=== PATIENT | male | born 1955 | race Caucasian/White ===

== ENCOUNTER → 2017-07-17 | Outpatient (CLI) | payer OTHER, MEDICAID ==
[~2017-07-17] MED LIST: CARDIZEM CD120 MG PO; CIPRO500 MG PO; HYDROCODONE-AP1 EAC6 PO; KLOR-CON 1010 MEQ PO; LASIX 20 MG TAB20 MG PO; NORCO 5-325 TA1 EACH PO; OMEPRAZOLE40 MG PO; TOPROL XL100 MG PO; VESICARE 5 MG TA5 MG PO; ZANTAC 150MG T150 MG PO
== END ==
LOC: M.WC 08:30
DX: T81.89XA Other complications of procedures, not elsewhere classified, initial encounter (principal); K21.9 Gastro-esophageal reflux disease without esophagitis; I50.9 Heart failure, unspecified; F17.200 Nicotine dependence, unspecified, uncomplicated; Y83.8 Other surgical procedures as the cause of abnormal reaction of the patient, or of later complication, without mention of misadventure at the time of the procedure

== ENCOUNTER → 2017-07-22 | Outpatient (CLI) | payer OTHER, MEDICAID | LOC: M.WC 04:13 | DX: T81.89XD Other complications of procedures, not elsewhere classified, subsequent encounter (principal); I87.312 Chronic venous hypertension (idiopathic) with ulcer of left lower extremity; L97.821 Non-pressure chronic ulcer of other part of left lower leg limited to breakdown of skin; M86.472 Chronic osteomyelitis with draining sinus, left ankle and foot; I89.0 Lymphedema, not elsewhere classified; I11.0 Hypertensive heart disease with heart failure; I50.22 Chronic systolic (congestive) heart failure; K21.9 Gastro-esophageal reflux disease without esophagitis; F17.200 Nicotine dependence, unspecified, uncomplicated; Z68.43 Body mass index [BMI] 50.0-59.9, adult; Y83.8 Other surgical procedures as the cause of abnormal reaction of the patient, or of later complication, without mention of misadventure at the time of the procedure ==

== ENCOUNTER → 2017-07-29 | Outpatient (CLI) | payer OTHER, MEDICAID | LOC: M.WC 03:35 | DX: T81.89XD Other complications of procedures, not elsewhere classified, subsequent encounter (principal); I87.312 Chronic venous hypertension (idiopathic) with ulcer of left lower extremity; L97.821 Non-pressure chronic ulcer of other part of left lower leg limited to breakdown of skin; M86.471 Chronic osteomyelitis with draining sinus, right ankle and foot; I89.0 Lymphedema, not elsewhere classified; I11.0 Hypertensive heart disease with heart failure; I50.22 Chronic systolic (congestive) heart failure; K21.9 Gastro-esophageal reflux disease without esophagitis; F17.200 Nicotine dependence, unspecified, uncomplicated; Z68.43 Body mass index [BMI] 50.0-59.9, adult; Y83.8 Other surgical procedures as the cause of abnormal reaction of the patient, or of later complication, without mention of misadventure at the time of the procedure ==

== ENCOUNTER → 2017-08-05 | Outpatient (CLI) | payer OTHER, MEDICAID | LOC: M.WC 00:40 | DX: T81.89XD Other complications of procedures, not elsewhere classified, subsequent encounter (principal); E11.69 Type 2 diabetes mellitus with other specified complication; M86.471 Chronic osteomyelitis with draining sinus, right ankle and foot; I11.0 Hypertensive heart disease with heart failure; I50.22 Chronic systolic (congestive) heart failure; I89.0 Lymphedema, not elsewhere classified; K21.9 Gastro-esophageal reflux disease without esophagitis; F17.200 Nicotine dependence, unspecified, uncomplicated; Z68.43 Body mass index [BMI] 50.0-59.9, adult; Y83.8 Other surgical procedures as the cause of abnormal reaction of the patient, or of later complication, without mention of misadventure at the time of the procedure ==

== ENCOUNTER → 2017-08-12 | Outpatient (CLI) | payer OTHER, MEDICAID | LOC: M.WC 04:08 | DX: T81.89XD Other complications of procedures, not elsewhere classified, subsequent encounter (principal); M86.471 Chronic osteomyelitis with draining sinus, right ankle and foot; I89.0 Lymphedema, not elsewhere classified; I11.0 Hypertensive heart disease with heart failure; I50.22 Chronic systolic (congestive) heart failure; K21.9 Gastro-esophageal reflux disease without esophagitis; F17.210 Nicotine dependence, cigarettes, uncomplicated; Y83.8 Other surgical procedures as the cause of abnormal reaction of the patient, or of later complication, without mention of misadventure at the time of the procedure ==

== ENCOUNTER → 2017-08-19 | Outpatient (CLI) | payer OTHER, MEDICAID ==
[2017-08-19 13:23] LABS: ABSOLUTE BASOPHILS 0.1 thou/uL (0.0-0.2); ABSOLUTE EOSINOPHILS 0.2 thou/uL (0.0-0.7); ABSOLUTE LYMPHOCYTES 1.9 thou/uL (0.8-5.3); ABSOLUTE MONOCYTES 0.6 thou/uL (0.0-1.2); ABSOLUTE NEUTROPHILS 3.8 thou/uL (1.6-8.1); BASOPHILS 1.1 %; HEMATOCRIT 44.8 % (42.0-52.0); HEMOGLOBIN 14.9 gm/dL (14.0-18.0); LYMPHOCYTES 29.5 %; MCH 29.1 pg (26.0-34.0); MCHC 33.2 g/dL (28.0-37.0); MCV 87.6 fL (80.0-100.0); MONOCYTES 9.1 %; MPV 7.2 fl. (7.2-11.1); NUCLEATED RBCS 0 /100WBC; PLATELET COUNT* 279 thou/uL (150-400); POLYS 57.3 %; RBC 5.11 mil/uL (4.50-6.00); RDW-CV 14.1 % (10.5-14.5); WBC 6.6 thou/uL (4.0-11.0)
[2017-08-19 13:29] LABS: CALCIUM 8.7 mg/dL (8.5-10.1); CREATININE 0.8 mg/dL (0.6-1.3)
[2017-08-19 13:36] LABS: ALBUMIN 3.4 g/dL (3.4-5.0); TOTAL BILIRUBIN 0.4 mg/dL (<0.1-1.0); TOTAL PROTEIN 7.2 g/dL (6.4-8.2)
[2017-08-19 14:28] LABS: ESR (SEDRATE) 3 mm/hr (0-20)
== END ==
LOC: M.WC 05:08
PROVIDERS: Family Medicine
DX: T81.31XD Disruption of external operation (surgical) wound, not elsewhere classified, subsequent encounter (principal); I11.0 Hypertensive heart disease with heart failure; I50.22 Chronic systolic (congestive) heart failure; M86.471 Chronic osteomyelitis with draining sinus, right ankle and foot; K21.9 Gastro-esophageal reflux disease without esophagitis; F17.200 Nicotine dependence, unspecified, uncomplicated; Z68.43 Body mass index [BMI] 50.0-59.9, adult; Y83.8 Other surgical procedures as the cause of abnormal reaction of the patient, or of later complication, without mention of misadventure at the time of the procedure

== ENCOUNTER 2017-08-30 15:20 | Inpatient (IN) | payer OTHER, MEDICAID ==
[~2017-08-30] VITALS: Ht 172.7 cm; Wt 117.0 kg
[2017-08-30 15:21] VITALS: BP 85/49
[2017-08-30] MEDS ORDERED: LASIX 20 MG TAB20 MG PO (15:32)
[2017-08-30] MEDS ORDERED: VESICARE 5 MG TA5 MG PO (15:32)
[2017-08-30] MEDS ORDERED: HYDROCODONE-AP1 EAC6 PO (15:32)
[2017-08-30] MEDS ORDERED: KLOR-CON 1010 MEQ PO (15:32)
[2017-08-30] MEDS ORDERED: TOPROL XL100 MG PO (15:32)
[2017-08-30] MEDS ORDERED: ZANTAC 150MG T150 MG PO (15:33)
[2017-08-30] MEDS ORDERED: OMEPRAZOLE40 MG PO (15:33)
[2017-08-30 16:34] LABS: HEMATOCRIT 42.8 % (42.0-52.0); HEMOGLOBIN 14.3 gm/dL (14.0-18.0); MCH 29.1 pg (26.0-34.0); MCHC 33.3 g/dL (28.0-37.0); MCV 87.4 fL (80.0-100.0); MPV 7.4 fl. (7.2-11.1); NUCLEATED RBCS 0 /100WBC; PLATELET COUNT* 214 thou/uL (150-400); RDW-CV 14.2 % (10.5-14.5); WBC 18.3 thou/uL (4.0-11.0)
[2017-08-30 16:47] LABS: CALCIUM 8.7 mg/dL (8.5-10.1); POTASSIUM 3.9 mmol/L (3.5-5.1)
[2017-08-30 16:52] LABS: ALBUMIN 3.1 g/dL (3.4-5.0); TOTAL BILIRUBIN 0.8 mg/dL (<0.1-1.0)
[2017-08-30 17:02] LABS: ABSOLUTE LYMPHOCYTES 0.9 thou/uL (0.8-5.3); ABSOLUTE MONOCYTES 0.7 thou/uL (0.0-1.2); ABSOLUTE NEUTROPHILS 16.7 thou/uL (1.6-8.1)
[2017-08-30 17:03] LABS: PLATELET ESTIMATE ADEQUATE
[2017-08-30 17:10] LABS: URINE BILIRUBIN NEGATIVE (Negative); URINE BLOOD TRACE (Negative); URINE CLARITY CLEAR; URINE COLOR YELLOW; URINE GLUCOSE-RANDOM NEGATIVE (Negative); URINE KETONES NEGATIVE (Negative); URINE LEUKOCYTES-REFLEX NEGATIVE (Negative); URINE NITRITE-REFLEX NEGATIVE (Negative); URINE PROTEIN 1+ (Negative); URINE SPECIFIC GRAVITY >= 1.030 (1.005-1.030); URINE UROBILINOGEN 0.2 E.U./dl (0.2-1.0)
[2017-08-30 18:41] LABS: APTT 33.4 Seconds (25.0-31.3); INR 1.2; PROTIME 11.6 Seconds (9.20-11.50)
[2017-08-30 20:20] VITALS: BP 117/52
[2017-08-30 20:24] VITALS: BP 116/60
[2017-08-30 21:00] VITALS: BP 107/53
[2017-08-30 22:00] VITALS: BP 116/56
[2017-08-30 23:00] VITALS: BP 115/61
[2017-08-31] VITALS (20 sets, daily range): BP systolic 92–149; BP diastolic 30–75
--- NOTE | 2017-08-31 04:43 | NUR ---
ADMITTED TO ICU BED 1 AT 2014, SEE ASSESSMENT. SPRING SALVAGE WORKER TRACING BIGEMINAL PVC'S, DR FELIX NOTIFIED, CARDIOLOGY CONSULT ORDERED. DR FELIX ALSO INSTRUCTED WE NOT RESTART PTS HOME METOPROLOL THIS MED CAN CAUSE BIGEMINY. PT HAS R ANKLE WOUND WITH WOUND VAC PLACED BY [facility], HOWEVER BATTERY HAD AND PT DOES NOT HAVE CASING GRADER. PER DR FELIX WET-TO-DRY DRESSING WAS PLACED UNTIL PT IS SEEN BY WOUND RN, PHOTOS TAKEN. PT DROWSY AND LETHARGIC, AROUSABLE TO VERBAL AND PHYSICAL STIMULI AND ANSWERS ORIENTATION QUESTIONS CORRECTLY BUT QUICKLY FALLS BACK ASLEEP, SOMETIMES MID-SENTENCE. CALL LIGHT WITHIN REACH.
--- NOTE | 2017-08-31 11:10 | NUR ---
ADMITTED EARLIER THIS MORNING WITH WOUND RLE, PT LETHARGIC, NO CONTACT INFORMATION PROVIDED ON ADMISSION. CALLED WOUND CENTER, THEY HAVE PT'S SISTER XIMENA DOWNS LEATHER TOGGLER [phone].
--- NOTE | 2017-08-31 15:27 | NUR ---
WOUND NURSE: PATIENT SEEN FOR ASSESSMENT OF FULL THICKNESS WOUND ON THE ANTERIOR ASPECT OF THE RIGHT ANKLE. WOUND PRESENTS WITH PINK TO RED GRANULATION TISSUE IN THE BED ACCOMPANIED WITH APPROX 25% YELLOW SLOUGH, SOME FIRMLY ADHERED TO THE WOUND BASE. PRESENTS WITH SEROUS AND SEROUSANGUINOUS DRAINAGE. THERE IS 3+ NONPITTING EDEMA PRESENT. THE AFFECTED AREAS IS PAINFUL, EDEMATOUS, AND WARM TO TOUCH. THERE IS REDNESS WHICH EXTENDS TO THE KNEE. CLEANSED WITH WOUND CLEANSER, THEN APPLIED AQUACEL AG UNDER ABD, THEN WRAPPED WTH KERLEX ROLL GAUZE UNDER CHANTEL WRAP. HOME WOUND VAC PLACED ON HOLD. ATTEMPTED TO CONTACT [facility] BUT THEY FAILED TO ANSWER AFTER 10 MINUTS. STAFF NURSE LV TO REMAIN ON HOLD WITH [facility], THEN PROVIDE THEM THE NECESSARY INFORMATION.
--- NOTE | 2017-08-31 18:17 | 2DMMODE ---
[place] [address] 2 D/M-MODE ECHOCARDIOGRAM Name: CASSIDY MARCH Room: [address] IN [facility]#: [id number] Admission: 08/30/17 Attend Phys: Alli Talamantes, Discharge: Date of : 59 Date of Service: 08/31/17 1817 Report #: [id number] THIS REPORT FOR: //name// APPROVED REPORT Study performed: 08/31/2017 09:18:02 EXAM: Comprehensive 2D, Doppler, and color-flow Echocardiogram Patient Location: In-Patient Room #: [facility] Status: routine BSA: 2.32 HR: 66 bpm BP: 92/41 mmHg Rhythm: NSR Other Information Study Quality: Good Indications Bigeminy 2D Dimensions LVEF(%): 78.87 (>50%) IVSd: 11.60 (7-11mm) LVOT Diam: 20.75 (18-24mm) LVDd: 47.53 mm PWd: 10.64 (7-11mm) Ascending Ao: 36.96 (22-36mm) LVDs: 24.94 (25-40mm) Aortic Root: 39.88 mm Gómez's LVEF: 78.87 % Volumes Left Atrial Volume (Systole) LA ESV Index: 24.10 mL/m2 Aortic Valve AoV Peak Sarwat.: 1.45 m/s AO Peak Gr.: 8.46 mmHg LVOT Max P.29 mmHg AO Mean Gr.: 5.10 mmHg LVOT Mean P.01 mmHg LVOT Max V: 1.44 m/s AO V2 VTI: 27.24 cm LVOT Mean V: 0.91 m/s ABHIJIT (VTI): 3.52 cm2 LVOT V1 VTI: 28.35 cm Mitral Valve E/A Ratio: 1.70 [place] [address] 2 D/M-MODE ECHOCARDIOGRAM Name: CASSIDY MARCH Room: [address] IN [facility]#: [id number] Admission: 08/30/17 Attend Phys: Alli Talamantes, Discharge: Date of : 59 Date of Service: 08/31/17 1817 Report #: [id number] MV Decel. Time: 163.17 ms MV E Max Sarwat.: 1.09 m/s MV PHT: 47.32 ms MVA (PHT): 4.65 cm2 TDI E/Lateral E': 6.06 E/Medial E': 7.27 Medial E' Sarwat.: 0.15 m/s Lateral E' Sarwat.: 0.18 m/s Pulmonary Valve PV Peak Sarwat.: 1.21 m/s PV Peak Gr.: 5.89 mmHg Tricuspid Valve RAP Estimate: 5.00 mmHg TR Peak Gr.: 30.25 mmHg RVSP: 35.25 mmHg PA Pressure: 35.25 mmHg Left Ventricle The left ventricle is normal size. There is normal LV segmental wall motion. There is normal left ventricular wall thickness. Left ventricular systolic function is normal. The left ventricular ejection fraction is within the normal range. LVEF is 60-65%. The left ventricular diastolic function is normal. Right Ventricle The right ventricle is normal size. The right ventricular systolic function is normal. Atria The left atrium size is normal. The right atrium size is normal. Aortic Valve The aortic valve is normal in structure. No aortic regurgitation is present. There is no aortic valvular stenosis. Mitral Valve The mitral valve is normal in structure. Trace mitral regurgitation. No evidence of mitral valve stenosis. Tricuspid Valve The tricuspid valve is normal in structure. Trace tricuspid regurgitation. Mild pulmonary [place] [address] 2 D/M-MODE ECHOCARDIOGRAM Name: CASSIDY MARCH Room: [address]#: [id number] Admission: 08/30/17 Attend Phys: Alli Talamantes, Discharge: Date of : 59 Date of Service: 08/31/17 1817 Report #: [id number] The pulmonary valve is normal in structure. Trace pulmonic regurgitation. Great Vessels The aortic root is normal in size. IVC is normal in size and collapses with >50% inspiration Pericardium There is no pericardial effusion. <Conclusion> The left ventricle is normal size. There is normal left ventricular wall thickness. Left ventricular systolic function is normal. The left ventricular ejection fraction is within the normal range. LVEF is 60-65%. The left ventricular diastolic function is normal. The right ventricle is normal size. The left atrium size is normal. The aortic valve is normal in structure. The mitral valve is normal in structure. The tricuspid valve is normal in structure. IVC is normal in size and collapses with >50% inspiration There is no pericardial effusion. There is normal LV segmental wall motion. <ELECTRONICALLY SIGNED> By: Israel Ross MD, FACC 08/31/171816 16 16 Israel Ross MD, FACC /INF
--- NOTE | 2017-08-31 18:43 | NUR ---
PT LETHARGIC AND DROWSY THROUGHOUT THE DAY. PT AWAKENED BY VERBAL STIMULI BUT OTHERWISE SLEPT THROUGH THE DAY. PAIN RATED 10/10 IN HIS RIGHT FOOT WHEN HE IS AWAKE. WOUND CARE SAW PATIENT, PLEASE SEE DRESSING CHANGE ORDERS. ASSESSMENT CHARTED AND VSS THROUGHOUT THE DAY. PT ABLE TO TURN SELF IN BED SIDE TO SIDE.
[2017-09-01] VITALS (9 sets, daily range): BP systolic 103–130; BP diastolic 41–68
--- NOTE | 2017-09-01 05:52 | NUR ---
NOT PROGRESSING TOWARD GOALS. AROUSABLE TO VERBAL AND PHYSICAL STIMULI, MORE VERBAL AND INTERACTIVE WHEN AWAKE, BU STILL FALL BACK TO SLEEP QUICKLY. PT HAS SLEPT MAJORITY OF THIS SHIFT. 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 AFEBRILE. IVF INFUSING ORDERED. LINENS CHANGED, YENNI-CARE PROVIDED, AND FACE WASHED, PT DECLINED FULL BATH. PT TURNS SELF INDEPENDENTLY FULLY ONTO EITHER SIDE. CALL LIGHT WITHIN REACH.
--- NOTE | 2017-09-01 07:48 | CON ---
[address] [address] CONSULTATION Name: JOAQUIMCASSIDY Rodriguez Room: [address] IN M.R.#: [id number] Admission: 08/30/17 Attend Phys: Alli Talamantes MD Discharge: Date of : 59 Report #: [id number] THIS REPORT FOR: //name// CC: Alli Gonzales [facility]yang DATE OF SERVICE: 08/31/2017 INFECTIOUS DISEASE CONSULTATION ATTENDING PHYSICIAN: Alli Talamantes M.D. REASON FOR EVALUATION: Suspected septic arthritis, osteomyelitis involving the right lower extremity. HISTORY OF PRESENT ILLNESS: Chart reviewed, patient examined. This is a 62-year-old with known diabetes mellitus, apparently has chronic ulceration changes. He actually has been followed by the wound care center, it is difficult to ascertain specifics in terms of details. He is quite somnolent at this point, but it was noted he was progressively weak, was evaluated in latter part of July in the wound care center; at that point, there may have been suspicion about infection. He did have culture collected, showed growth of Pseudomonas aeruginosa that was generally susceptible. Again, he has had temperature elevation to 101.8 overnight, he was empirically started on therapy with vancomycin and given a dose of cefepime. ALLERGIES: MORPHINE AND CODEINE. CURRENT MEDICATIONS: Include pantoprazole, furosemide, hydrocodone, promethazine, vancomycin, and p.r.n. analgesics. PAST MEDICAL HISTORY: Diabetes mellitus, chronic issues with his right ankle. Previous back surgery, cholecystectomy, and appendectomy. SOCIAL HISTORY: A [id number] history of smoking. No ethanol, no illicit drug use. FAMILY HISTORY: Noncontributory. REVIEW OF SYSTEMS: Unobtainable. PHYSICAL EXAMINATION: GENERAL: Appears chronically ill, undernourished. He is quite somnolent, barely arouses. VITAL SIGNS: Temperature 100.6, pulse 48, respirations 21, blood pressure 120/49[place] [address] CONSULTATION Name: CASSIDY MARCH Room: [address]#: [id number] Admission: 08/30/17 Attend Phys: Alli Talamantes MD Discharge: Date of : 59 Report #: [id number] SKIN: Warm and dry. No rashes. HEENT: He is disheveled. NECK: Appears to be supple. LUNGS: Diminished breath sounds. Few scattered crackles primarily at the bases. HEART: Borderline bradycardic. I do not appreciate a murmur. ABDOMEN: Soft, mildly distended. There are no peritoneal signs. The right ankle has got a dressing in place. He is exquisitely tender to manipulation. There are [id number] inflammatory changes noted. GENITOURINARY: Deferred. RECTAL: Deferred. LABORATORY DATA: Electrolytes initially sodium 133, potassium 3.9, chloride 100, bicarbonate is 28, BUN and creatinine 13 and 1.0, glucose of 103. LFTs are unremarkable. Albumin of 3.1. Total protein 7.0. Estimated GFR 76. CBC: White count of 18.3, H and H of 14.3 and 42.8, platelets of 214. UA was unremarkable. Lactic acid of 1.9. Plain film of the x-ray showed radiographic findings consistent with extensive osteomyelitis of the distal tibia and tibiotalar joint, swelling of the soft tissue, inflammation involving the right lower leg and ankle region. Chest x-ray has no acute process. Blood culture is sterile thus far. ASSESSMENT: Deep infection involving the right ankle in a setting of a chronic wound, recent culture with Pseudomonas. We will add gram-negative coverage, vascular surgery evaluation, possible operative debridement. He is quite tenuous at this point. We will have to monitor expectantly. He is certainly at risk for nosocomial-related infectious complications. I am not sure he is capable of doing any incentive spirometry at this point. We will monitor expectantly. <ELECTRONICALLY SIGNED> By: Cayetano Hernandez MD 09/01/17 0748 1151 1523Joharmony Hernandez MD /nt
--- NOTE | 2017-09-01 10:30 | NUR ---
UNABLE TO KEEP PT AWAKE LONG ENOUGH TO CARRY ON A CONVERSTAION WITH HIM. WILL TRY AGAIN LATER TO ASSESS.
[2017-09-01 11:50] LABS: CREATININE 0.8 mg/dL (0.6-1.3); POTASSIUM 3.6 mmol/L (3.5-5.1)
--- NOTE | 2017-09-01 13:31 | EKG ---
[place] [address] ELECTROCARDIOGRAM REPORT Name: CASSIDY MARCH Room: [address] ADM IN M.R.#: [id number] Admission: 08/30/17 Attend Phys: Alli Talamantes MD Discharge: Date of : 59 Report #: [id number] THIS REPORT FOR: //name// [facility] ED Test Date: 2017-08-30 Test Time: 17:47:12 Pat Name: CASSIDY MARCH Department: Room: [address] Gender: M Project Drilling Engineer: LEONELA : 1955 Requested By: Kayce Tovar Order Number: [id number] Reading MD: Cristino Franco Measurements Intervals [place] Rate: 124 P: 23 TX: 192 QRS: -26 QRSD: 96 T: 54 QT: 319 QTc: 459 Interpretive Statements Sinus tachycardia Ventricular bigeminy Borderline prolonged TX interval Borderline left axis deviation Minimal ST depression, anterolateral leads No previous ECG available for comparison Electronically Signed On 09-01-2017 13:31:13 CDT by Cristino Franco [email or web address] <ELECTRONICALLY SIGNED> By: Cristino Franco MD, FACC 09/01/17 1331 1747 1747 Cristino Franco MD, [facility] /EPI
--- NOTE | 2017-09-01 13:32 | EKG ---
[place] [address] ELECTROCARDIOGRAM REPORT Name: CASSIDY MARCH Room: [address] ADM IN M.R.#: [id number] Admission: 08/30/17 Attend Phys: Alli Talamantes MD Discharge: Date of : 59 Report #: [id number] THIS REPORT FOR: //name// [facility] ED Test Date: 2017-08-30 Test Time: 18:21:18 Pat Name: CASSIDY MARCH Department: Room: [address] Gender: M Technical Operations Manager: LEONELA : 1955 Requested By: Kayce Tovar Order Number: [id number] Reading MD: Cristino Franco Measurements Intervals [place] Rate: 108 P: 48 OR: 191 QRS: -23 QRSD: 97 T: 51 QT: 359 QTc: 481 Interpretive Statements Sinus tachycardia Ventricular bigeminy Borderline left axis deviation No previous ECG available for comparison Electronically Signed On 09-01-2017 13:31:53 CDT by Cristino Franco [email or web address] <ELECTRONICALLY SIGNED> By: Cristino Franco MD, [facility] 09/01/17 1331 20 20 Cristino Franco MD, [facility] /EPI
--- NOTE | 2017-09-01 14:52 | NUR ---
ASSUMED CARE OF PT AROUND 0730 THIS AM. REFER TO ASSESSMENT. PT NOTED TO BE DROWSY/LETHARGIC ALTHOUGH EASILY AROUSABLE AND ANSWERING QUESTIONS APPROPRIATELY. PT STATES HE SLEEPS 'ALL THE TIME' AT HOME. ATTEMPTED TO TITRATE TO RA THIS SHIFT, AND NOTED DESATS TO HIGH 80'S% WHILE SLEEPING FLAT ON BACK. REPLACED OXYGEN AT 2L/NC. TELE SR WITH FREQUENT PVC'S. CARDIOLOGY SIGNED OFF. PT TRANSFERRED TO MED/SURG STATUS THIS SHIFT. AWAITING BED ASSIGNMENT. WOUND CARE COMPLETED. NO OTHER CONCERNS AT THIS TIME. CLWR. WCTM.
--- NOTE | 2017-09-01 16:44 | NUR ---
ASSUMED CAREOF PATIENT DENIES PAIN OR SOA. REPAINS SUPINE TAKING PO. DRESSING DRY AND INTACT
[2017-09-02] VITALS: BP 118/67
[2017-09-02 05:59] LABS: CALCIUM 7.6 mg/dL (8.5-10.1); CREATININE 0.8 mg/dL (0.6-1.3); POTASSIUM 3.5 mmol/L (3.5-5.1)
--- NOTE | 2017-09-02 06:40 | NUR ---
PATIENT SLEPT MOST OF THE NIGHT. IV ANTIBIOTICS WERE GIVEN ORDERED. PATIENT WAS VERY WHEEZY THIS MORNING. ORDER RECEIVED FOR BREATHING TREATMENT WHEEZING IMPROVED AFTER TREATMENT. DRESSING TO RLE REMAINS INTACT. PATIENT IS ON OXYGEN AT 3L SATTING 94%. WILL CONTINUE TO MONITOR.
[2017-09-02 08:10] VITALS: BP 122/43
--- NOTE | 2017-09-02 14:13 | NUR ---
Nutrition: Pt assessed for LOS. Admitted for RLE wound. Pt seen in wound clinic and has wound VAC. Osteomyelitis in RLE. Wt stable, 269#. Last recorded meal intake was 25%. RX: vanc, lasix. Labs: BG good, albumin 3.1. On 3L O2. RD will order Glucerna once a day for added protein intake. Hopeful that pt will increase po intake at meal times as well. Consider Mild risk. Will follow. RECOMMEND MVI WELL.
[2017-09-02 16:00] VITALS: BP 107/76
--- NOTE | 2017-09-02 17:36 | NUR ---
ASSUMED CARE OF PT AT 0730. PT CONTINUES TO BE A&O X4, AGGITATED AND ANXIOUS. PT REQUESTED TO DC. DR KELLER NOTIFIED AND SPOKE WITH THE PT AND HE AGREES TO STAY FOR TREATMENT. PT GIVEN IV ATIVAN FOR ANIXETY/AGGITATION. PT HAS BEEN EATING WELL AND HAS ATE GREATER THAN 75% OF ALL MEALS TODAY. LUNG SOUNDS ARE WHEEZY BUT SATURATIONS ARE STABLE IN THE 90'S, NURSING WILL CONTINUE TO MONITOR.
--- NOTE | 2017-09-02 17:48 | NUR ---
PT DISCONECTED IV AND REFUSES TO HAVE FLUIDS HOOKED UP, STATES HE IS PEEING TOO MUCH.
[2017-09-03] VITALS: BP 98/66
[2017-09-03 04:48] LABS: CALCIUM 8.1 mg/dL (8.5-10.1); CREATININE 0.7 mg/dL (0.6-1.3); POTASSIUM 3.3 mmol/L (3.5-5.1)
[2017-09-03 05:04] VITALS: BP 120/70
--- NOTE | 2017-09-03 06:09 | NUR ---
PT IMPUSILVE AND FORGETFUL, NEEDS REORIENTATION. PT DISCONTUINED IV X2 THROUGH OUT THE NIGHT. NEW IV PLACE FLUIDS RUNNING. PT INCONTENT OF BLADDER, PT WILL VOID ON THE FLOOR. WOULD RIGHT ANKLE/CALF, WRAPED AND INTACT. 4L O2. VITALS WNL. SEE MAR. SEE CHARTING. FALL PRECAUTIONS IN PLACE. HOURLY ROUNDING FOR SAFETY.
--- NOTE | 2017-09-03 08:30 | NUR ---
RECEIVED REPORT. ASSUMED CARE OF PT AT 0730. VSS. PT IS VERY DROWSY AND EASILY FALLS BACK TO SLEEP THIS AM. PT UNABLE TO STAY AWAKE TO EAT BREAKFAST. PT ON 3L PER NC WITH O2 SAT AT 94%. PT'S LUNGS COARSE-WILL NOTIFY PHYSICIAN. IVF INFUSING PER ORDERS. PT DNEIES ANY COMPLAITNS OF PAIN. PT INCONTINENT OF URINE. PT'S RIGHT LE DRESSING C/D/I. PT INFORMED OF PLAN OF CARE. WILL CONTINUE TO MONITOR CAREFULLY.
[2017-09-03 10:40] LABS: BE 3.7 mmol/L (-2 to +3); HCO3 26.7 mmol/L (22.0-26.0); PCO2 35.4 mmHg (35.0-45.0); pH 7.496 (7.340-7.450)
--- NOTE | 2017-09-03 14:33 | NUR ---
CM MADE MULTIPPLE ATTEMPT TO SE PATIENT TO DISCUSS HOME SITUATION AND DISCHARGE PLANNING NEEDS. PATIENT RESTING WITH EYES CLOSED AND UNABLE TO AROUSE. CM SPOKE TO RN IN-CHARGE OF PATIENT AND SHE CONFIRMS THAT PATIENT IS RESTING DUE TO MEDICATION. CM WILL REMAIN AVAILABLE TO ASSIST AND FOLLOW NEEDED.
[2017-09-03 17:01] VITALS: BP 111/41
--- NOTE | 2017-09-03 17:38 | NUR ---
VSS. PT MED-SURG STATUS. PT SOMEWHAT PROGRESSING TOWARDS GOALS. PT HAS BEEN ON RA. PT'S PAIN WELL MANAGED WITH PO PAIN MEDS. PT REFUSED THIS RN TO CHANGE DRESSING TO RLE. PT REFUSED MOST CARES THIS SHIFT STATING HE JUST WANTED TO SLEEP. PT SLEPT MAJORITY OF SHIFT. PT INCONTINENT OF URINE THROUGHOUT SHIFT. MULTIPLE BED CHANGES THIS SHIFT. IV SALINE LOCKED. PT INFORMED OF PLAN OF CARE. CALL LIGHT IS WITHIN REACH. WILL CONTINUE TO MONTIOR FOR DURATION OF SHFIT.
[2017-09-03 20:00] VITALS: BP 126/69
[2017-09-04 04:00] VITALS: BP 118/59
--- NOTE | 2017-09-04 06:32 | NUR ---
A&O X4 CALM COOPERITVE. MEDSURGE STATUS.2L O2 PRN. IV ABX. UP X1. VITALS WNL. SEE MAR. SEE CHARTING. FALL PRECAUTIONS IN PLACE. HOURLY ROUNDING FOR SAFETY.
[2017-09-04 07:20] VITALS: BP 149/74
[2017-09-04 07:54] LABS: CALCIUM 8.3 mg/dL (8.5-10.1); CREATININE 0.7 mg/dL (0.6-1.3); POTASSIUM 3.2 mmol/L (3.5-5.1)
[2017-09-04] MEDS ORDERED: NORCO 5-325 TA1 EACH PO (14:20)
[2017-09-04] MEDS ORDERED: CIPRO500 MG PO (14:21)
[2017-09-04 15:06] VITALS: BP 149/74
[2017-09-04 15:33] VITALS: BP 149/74
[2017-09-04] MEDS ORDERED: CARDIZEM CD120 MG PO (15:33)
--- NOTE | 2017-09-04 15:39 | NUR ---
CM SPOKE TO THE PATIENT TO DISCUSS HOME SITUATION, DISCHARGE PLANNING, AND TO INFORM OF THE ROLE OF CM. PATIENT ALERT, ORIENTED, AND INDEPENDENT WI ADL'S. PATIENT DRIVES. PATIENT RESIDES AT HOME WITH NEPHEW AND HE ASSIST THE PATIENT NEEDED. GUTIERREZ INFORMS THAT HE HAS A WALKER AND CAN AT HOME, BUT DOES NOT USE THEM. PATIENT HAS A HX OF HH, BUT COULD NOT RECALL THE NAME. PATIENT HAS NO HX OF SNF. PATIENT PLANS TO RETURN HOME AT D/C AND IS OPEN TO TO ASSIST WITH DRESSING CHANGES. PATIENT REQUEST [facility] FOR HH. CM CONTACTED [facility] TO INFORM OF THE REFERRAL AND FAXED PATIENTS CLINICAL INFO, AND D/C ORDERS. PATIENT REQUESTING [facility] FOR MOBILITY. CM CONTACTED [facility] TO INFORM OF THE DME ORDER AND FAXED ORDER AND PATIENT'S CLINICAL INFO. JUMANA WITH [facility] INFORMED OF APPROVAL FOR DME. CM INFORMED NURSING WASH BARREL LEADER OF NEED TO PROVIDE PATIENT WITH A WALKER FROM THE DME CLOSET. CM WILL REMAIN AVAILABLE TO ASSIST AND FOLLOW NEEDED.
--- NOTE | 2017-09-04 16:01 | NUR ---
VSS, RECIVED D/C ORDERS, FILLED OUT D/C PAPERS AND PROVITED D/C INSTRUCTIONS, TOOK OUT IV AND GATHERED PT BELONGINGS, PT DENIES ANY QUESTIONS OR CONCERNS AT TIME OF D/C HOURLY ROUNDS COMPLETED. AND PT WAS TAKEN OUT VIA WHEEL CHAIR BY STAFF, HOURLY ROUNDS COMPLETED.
--- NOTE | 2017-09-05 09:03 | NUR ---
PT ORDERS RECEIVED ON 09/04/17 AT 1502. THERAPY UNABLE TO COMPLETE EVAL PRIOR TO PT DISCHARGE FROM FACILITY.
--- NOTE | 2017-09-16 08:35 | CON ---
[address] [address] CONSULTATION Name: JOAQUIMCASSIDY Michael Room: [address] IN M.R.#: [id number] Admission: 08/30/17 Attend Phys: Alli Talamantes MD Discharge: 09/04/17 Date of : 59 Report #: [id number] THIS REPORT FOR: //name// CC: Alli Gonzales sandra DATE OF SERVICE: 08/31/2017 REASON FOR CONSULTATION: Right lower extremity ulceration, chronic osteomyelitis, sepsis. HISTORY OF PRESENT ILLNESS: The patient is a 62-year-old male who was brought by [facility], which was called by his caregiver. He is having increased pain and swelling in his right lower extremity. I have been managing his wound at the wound care center on an outpatient basis. Prior to this, he was being seen by Dr. Jurado at [facility]. He has had ongoing multiple debridements including plate removal, infected hardware quite a while ago. He has been on and off antibiotics including linezolid and this is being managed by Dr. Benson at [facility]. He was supposed to have followup appointment with her, I believe in June and did not make that appointment. For this reason, she was reluctant to rewrite his antibiotic medications without visiting with him first. This has been difficult for him to arrange. Please see my wound care notes as well for additional information. With regards to this visit, he is difficult to arouse. He is sleeping in a left lateral decubitus position and does not wake to questions or answering to be breathing without laboring. The nurse reports that he will awake to significant stimulus, but does not really answer questions well. PAST MEDICAL HISTORY: Significant for diabetes mellitus, chronic lower extremity swelling, venous insufficiency, lymphedema, diabetes mellitus, chronic osteomyelitis of the right ankle with draining sinus. PAST SURGICAL HISTORY: Significant for multiple surgeries of his right ankle including hardware placement and removal. He has had multiple subcutaneous debridements in the wound care center. SOCIAL HISTORY: The patient does not smoke. Denies alcohol. ALLERGIES: INCLUDE CODEINE AND MORPHINE. REVIEW OF SYSTEMS: Not obtainable due to the patient's condition. PHYSICAL EXAMINATION: [place] [address] CONSULTATION Name: CASSIDY MARCH Room: [address]#: [id number] Admission: 08/30/17 Attend Phys: Alli Talamantes MD Discharge: 09/04/17 Date of : 59 Report #: [id number] VITAL SIGNS: T-max 101.1. GENERAL: The patient is in no acute distress, but is difficult to arouse from sleep. HEENT: Head is normocephalic, atraumatic. Extraocular muscles intact. Pupils equal, round, reactive to light and accommodation. Sclerae white, nonicteric. NECK: Supple, no thyromegaly, no masses, no lymphadenopathy. HEART: Regular rate and rhythm. LUNGS: Clear. ABDOMEN: Soft, nondistended, nontender to palpation. EXTREMITIES: Focused exam of his lower extremities demonstrates stable, but significant edema of the right lower extremity, which is slightly more swollen than his left. He has erythema and rubor to his right foot, ankle and lower leg. Wound VAC has been removed. He has a dressing over his wound, which I reviewed the images placed in the chart. They were placed by the wound care nurse, Remy. This appears to have good granulation tissue. Remy reports that there was no foul smell or drainage from the wound itself. PERTINENT LABORATORY DATA: White blood cell count 18.3. Creatinine 1. Urine is positive for protein and trace blood. ASSESSMENT AND PLAN: The patient is a 62-year-old male with chronic refractory osteomyelitis of the right ankle with a draining sinus, history of diabetes mellitus and chronic bilateral lower extremity swelling, right worse than left contributed to combine lymphedema as well as severe venous insufficiency. He appears to have cellulitis of his right leg. At this point, we will manage with antibiotics per Dr. Hernandez, light compression and see if his cellulitis improves. It has been recommended previously at [facility] by his student admissions clerk that he undergo amputation as his ulcers are not healable, however, is improved. His wound itself appears improved with wound VAC therapy and local debridement. I am optimistic that limb salvage is possible as long as infection can be controlled. Thank you for allowing me to participate in this patient's care. Please do not hesitate to call should you have further questions or concerns. <ELECTRONICALLY SIGNED> By: Escobar Dhillon DO 09/16/17 0835 1646 19Escobar Dhillon DO /nt
== END 2017-09-04 16:22 | disposition home health service (06) | DRG 871 ==
LOC: M.ERS 15:20 → M.TBA-ER 18:39 → M.ICU 18:39 → M.2W 09-01 19:02
PROVIDERS: Internal Medicine; Nurse Practitioner Family; ADMIT Internal Medicine
DX: A41.9 Sepsis, unspecified organism (principal); N17.0 Acute kidney failure with tubular necrosis; J96.20 Acute and chronic respiratory failure, unspecified whether with hypoxia or hypercapnia; L97.919 Non-pressure chronic ulcer of unspecified part of right lower leg with unspecified severity; L03.115 Cellulitis of right lower limb; M86.671 Other chronic osteomyelitis, right ankle and foot; R00.8 Other abnormalities of heart beat; I10 Essential (primary) hypertension; E78.5 Hyperlipidemia, unspecified; F17.210 Nicotine dependence, cigarettes, uncomplicated; K21.9 Gastro-esophageal reflux disease without esophagitis; I87.2 Venous insufficiency (chronic) (peripheral); E11.622 Type 2 diabetes mellitus with other skin ulcer; E66.01 Morbid (severe) obesity due to excess calories; S81.801A Unspecified open wound, right lower leg, initial encounter; X58.XXXA Exposure to other specified factors, initial encounter; Z71.3 Dietary counseling and surveillance; Z88.6 Allergy status to analgesic agent; Y93.89 Activity, other specified; Y92.89 Other specified places as the place of occurrence of the external cause; Y99.8 Other external cause status; Z90.49 Acquired absence of other specified parts of digestive tract; Z68.39 Body mass index [BMI] 39.0-39.9, adult; Z79.2 Long term (current) use of antibiotics; Z79.899 Other long term (current) drug therapy; Z82.49 Family history of ischemic heart disease and other diseases of the circulatory system

== ENCOUNTER → 2017-09-09 | Outpatient (CLI) | payer OTHER, MEDICAID | LOC: M.WC 05:10 | DX: T81.89XD Other complications of procedures, not elsewhere classified, subsequent encounter (principal); M86.471 Chronic osteomyelitis with draining sinus, right ankle and foot; K21.9 Gastro-esophageal reflux disease without esophagitis; I50.9 Heart failure, unspecified; F17.200 Nicotine dependence, unspecified, uncomplicated; Z68.43 Body mass index [BMI] 50.0-59.9, adult; Y83.8 Other surgical procedures as the cause of abnormal reaction of the patient, or of later complication, without mention of misadventure at the time of the procedure ==

== ENCOUNTER → 2017-09-16 | Outpatient (CLI) | payer OTHER, MEDICAID | LOC: M.WC 04:45 | DX: T81.89XD Other complications of procedures, not elsewhere classified, subsequent encounter (principal); I87.312 Chronic venous hypertension (idiopathic) with ulcer of left lower extremity; L97.821 Non-pressure chronic ulcer of other part of left lower leg limited to breakdown of skin; M86.471 Chronic osteomyelitis with draining sinus, right ankle and foot; K21.9 Gastro-esophageal reflux disease without esophagitis; I50.9 Heart failure, unspecified; F17.200 Nicotine dependence, unspecified, uncomplicated; Z68.43 Body mass index [BMI] 50.0-59.9, adult; Y83.8 Other surgical procedures as the cause of abnormal reaction of the patient, or of later complication, without mention of misadventure at the time of the procedure ==

== ENCOUNTER → 2017-09-21 | Outpatient (CLI) | payer OTHER, MEDICAID | LOC: M.WC 10:00 | DX: T81.89XD Other complications of procedures, not elsewhere classified, subsequent encounter (principal); I87.312 Chronic venous hypertension (idiopathic) with ulcer of left lower extremity; L97.821 Non-pressure chronic ulcer of other part of left lower leg limited to breakdown of skin; M86.471 Chronic osteomyelitis with draining sinus, right ankle and foot; K21.9 Gastro-esophageal reflux disease without esophagitis; I50.9 Heart failure, unspecified; F17.200 Nicotine dependence, unspecified, uncomplicated; Y83.8 Other surgical procedures as the cause of abnormal reaction of the patient, or of later complication, without mention of misadventure at the time of the procedure ==

== ENCOUNTER → 2017-09-30 | Outpatient (CLI) | payer OTHER, MEDICAID | LOC: M.WC 04:07 | DX: T81.89XD Other complications of procedures, not elsewhere classified, subsequent encounter (principal); I87.312 Chronic venous hypertension (idiopathic) with ulcer of left lower extremity; L97.311 Non-pressure chronic ulcer of right ankle limited to breakdown of skin; I50.9 Heart failure, unspecified; M86.471 Chronic osteomyelitis with draining sinus, right ankle and foot; K21.9 Gastro-esophageal reflux disease without esophagitis; F17.200 Nicotine dependence, unspecified, uncomplicated; Y83.8 Other surgical procedures as the cause of abnormal reaction of the patient, or of later complication, without mention of misadventure at the time of the procedure ==

== ENCOUNTER → 2017-10-07 | Outpatient (CLI) | payer OTHER, MEDICAID | LOC: M.WC 03:21 | DX: T81.89XD Other complications of procedures, not elsewhere classified, subsequent encounter (principal); I87.312 Chronic venous hypertension (idiopathic) with ulcer of left lower extremity; L97.321 Non-pressure chronic ulcer of left ankle limited to breakdown of skin; M86.471 Chronic osteomyelitis with draining sinus, right ankle and foot; I50.9 Heart failure, unspecified; K21.9 Gastro-esophageal reflux disease without esophagitis; F41.9 Anxiety disorder, unspecified; F17.200 Nicotine dependence, unspecified, uncomplicated; Y83.8 Other surgical procedures as the cause of abnormal reaction of the patient, or of later complication, without mention of misadventure at the time of the procedure ==

== ENCOUNTER → 2017-10-14 | Outpatient (CLI) | payer OTHER, MEDICAID | LOC: M.WC 01:34 | DX: T81.89XD Other complications of procedures, not elsewhere classified, subsequent encounter (principal); I87.312 Chronic venous hypertension (idiopathic) with ulcer of left lower extremity; L97.821 Non-pressure chronic ulcer of other part of left lower leg limited to breakdown of skin; M86.471 Chronic osteomyelitis with draining sinus, right ankle and foot; E66.9 Obesity, unspecified; I50.9 Heart failure, unspecified; K21.9 Gastro-esophageal reflux disease without esophagitis; F17.200 Nicotine dependence, unspecified, uncomplicated; F41.9 Anxiety disorder, unspecified; Z68.43 Body mass index [BMI] 50.0-59.9, adult; Y83.8 Other surgical procedures as the cause of abnormal reaction of the patient, or of later complication, without mention of misadventure at the time of the procedure ==

== ENCOUNTER → 2017-10-29 | Outpatient (CLI) | payer OTHER, MEDICAID | LOC: M.WC 10-28 04:50 | DX: T81.89XD Other complications of procedures, not elsewhere classified, subsequent encounter (principal); M86.471 Chronic osteomyelitis with draining sinus, right ankle and foot; I87.312 Chronic venous hypertension (idiopathic) with ulcer of left lower extremity; L97.821 Non-pressure chronic ulcer of other part of left lower leg limited to breakdown of skin; E66.9 Obesity, unspecified; I50.9 Heart failure, unspecified; K21.9 Gastro-esophageal reflux disease without esophagitis; F17.200 Nicotine dependence, unspecified, uncomplicated; F41.9 Anxiety disorder, unspecified; Z68.43 Body mass index [BMI] 50.0-59.9, adult; Y83.8 Other surgical procedures as the cause of abnormal reaction of the patient, or of later complication, without mention of misadventure at the time of the procedure ==

== ENCOUNTER → 2017-11-11 | Outpatient (CLI) | payer OTHER, MEDICAID | LOC: M.WC 05:16 | DX: T81.89XD Other complications of procedures, not elsewhere classified, subsequent encounter (principal); I87.312 Chronic venous hypertension (idiopathic) with ulcer of left lower extremity; L97.321 Non-pressure chronic ulcer of left ankle limited to breakdown of skin; E66.9 Obesity, unspecified; I50.9 Heart failure, unspecified; K21.9 Gastro-esophageal reflux disease without esophagitis; M86.471 Chronic osteomyelitis with draining sinus, right ankle and foot; F41.9 Anxiety disorder, unspecified; F17.200 Nicotine dependence, unspecified, uncomplicated; Z68.43 Body mass index [BMI] 50.0-59.9, adult; Y83.8 Other surgical procedures as the cause of abnormal reaction of the patient, or of later complication, without mention of misadventure at the time of the procedure ==

== ENCOUNTER → 2017-11-25 | Outpatient (CLI) | payer OTHER, MEDICAID | LOC: M.WC 11-18 04:24 | DX: T81.89XD Other complications of procedures, not elsewhere classified, subsequent encounter (principal); I87.311 Chronic venous hypertension (idiopathic) with ulcer of right lower extremity; L97.311 Non-pressure chronic ulcer of right ankle limited to breakdown of skin; M86.471 Chronic osteomyelitis with draining sinus, right ankle and foot; I50.9 Heart failure, unspecified; K21.9 Gastro-esophageal reflux disease without esophagitis; E66.9 Obesity, unspecified; F41.9 Anxiety disorder, unspecified; F17.200 Nicotine dependence, unspecified, uncomplicated; Z68.43 Body mass index [BMI] 50.0-59.9, adult; Y83.8 Other surgical procedures as the cause of abnormal reaction of the patient, or of later complication, without mention of misadventure at the time of the procedure ==

== ENCOUNTER → 2017-12-22 | Outpatient (CLI) | payer OTHER, MEDICAID | LOC: M.WC 04:54 | DX: T81.89XD Other complications of procedures, not elsewhere classified, subsequent encounter (principal); I87.311 Chronic venous hypertension (idiopathic) with ulcer of right lower extremity; L97.311 Non-pressure chronic ulcer of right ankle limited to breakdown of skin; M86.471 Chronic osteomyelitis with draining sinus, right ankle and foot; I50.9 Heart failure, unspecified; K21.9 Gastro-esophageal reflux disease without esophagitis; F17.200 Nicotine dependence, unspecified, uncomplicated; F41.9 Anxiety disorder, unspecified; Y83.8 Other surgical procedures as the cause of abnormal reaction of the patient, or of later complication, without mention of misadventure at the time of the procedure ==

== ENCOUNTER → 2018-01-05 | Outpatient (CLI) | payer OTHER, MEDICAID | LOC: M.WC 04:33 | DX: T81.89XD Other complications of procedures, not elsewhere classified, subsequent encounter (principal); I87.311 Chronic venous hypertension (idiopathic) with ulcer of right lower extremity; L97.311 Non-pressure chronic ulcer of right ankle limited to breakdown of skin; M86.471 Chronic osteomyelitis with draining sinus, right ankle and foot; I50.9 Heart failure, unspecified; I89.0 Lymphedema, not elsewhere classified; K21.9 Gastro-esophageal reflux disease without esophagitis; F41.9 Anxiety disorder, unspecified; F17.200 Nicotine dependence, unspecified, uncomplicated; Y83.8 Other surgical procedures as the cause of abnormal reaction of the patient, or of later complication, without mention of misadventure at the time of the procedure ==

== ENCOUNTER → 2018-01-26 | Outpatient (CLI) | payer OTHER, MEDICAID | LOC: M.WC 05:20 | DX: T81.89XD Other complications of procedures, not elsewhere classified, subsequent encounter (principal); I87.311 Chronic venous hypertension (idiopathic) with ulcer of right lower extremity; L97.311 Non-pressure chronic ulcer of right ankle limited to breakdown of skin; M86.471 Chronic osteomyelitis with draining sinus, right ankle and foot; I11.0 Hypertensive heart disease with heart failure; I50.9 Heart failure, unspecified; K21.9 Gastro-esophageal reflux disease without esophagitis; F41.9 Anxiety disorder, unspecified; F17.200 Nicotine dependence, unspecified, uncomplicated; Y83.8 Other surgical procedures as the cause of abnormal reaction of the patient, or of later complication, without mention of misadventure at the time of the procedure ==

== ENCOUNTER → 2018-02-09 | Outpatient (CLI) | payer OTHER, MEDICAID | LOC: M.WC 04:51 | DX: T81.89XD Other complications of procedures, not elsewhere classified, subsequent encounter (principal); I87.312 Chronic venous hypertension (idiopathic) with ulcer of left lower extremity; L97.828 Non-pressure chronic ulcer of other part of left lower leg with other specified severity; M86.471 Chronic osteomyelitis with draining sinus, right ankle and foot; I11.0 Hypertensive heart disease with heart failure; I50.9 Heart failure, unspecified; I89.0 Lymphedema, not elsewhere classified; K21.9 Gastro-esophageal reflux disease without esophagitis; F41.9 Anxiety disorder, unspecified; F17.200 Nicotine dependence, unspecified, uncomplicated; Y83.8 Other surgical procedures as the cause of abnormal reaction of the patient, or of later complication, without mention of misadventure at the time of the procedure ==